=== PATIENT | female | born 1990 | race Caucasian/White ===

== ENCOUNTER 2017-03-29 09:29 | Outpatient (CLI) | payer OTHER ==
[~2017-03-29] VITALS: Ht 170.2 cm; Wt 99.0 kg
[2017-03-29] MEDS ORDERED: CLAR1TAB2 PO (09:59)
[2017-03-29] MEDS ORDERED: ACET50TA PO (09:59)
[2017-03-29] MEDS ORDERED: UNIS25TA2 PO (09:59)
[2017-03-29] MEDS ORDERED: PRENTAB9 PO (09:59)
== END 2017-03-29 10:35 | disposition home or self-care (01) ==
LOC: M LDO 09:29
PROVIDERS: ATTEND Advanced Practice Midwife
DX: O26.893 Other specified pregnancy related conditions, third trimester (principal); Z3A.36 36 weeks gestation of pregnancy; N89.9 Noninflammatory disorder of vagina, unspecified

== ENCOUNTER 2017-04-13 07:33 | Outpatient (CLI) | payer OTHER ==
[~2017-04-13] VITALS: Ht 170.2 cm; Wt 100.0 kg
[~2017-04-13 07:33] MED LIST: ACET50TA PO; CLAR1TAB2 PO; PRENTAB9 PO; UNIS25TA2 PO
[2017-04-13 07:49] VITALS: BP 122/81
--- NOTE | 2017-04-13 08:44 | HPE ---
DATE OF ADMISSION: 04/13/2017 This lady is a 26-year-old 5, para 3, abortio 1, last menstrual period 07/14/2016, estimated date of confinement (EDC) 04/20/2017 at 39 weeks of gestation. She has been having [place] contractions since 1 o'clock in the morning and she had a bit of show and some clots. She does not appear to be in any distress. PAST HISTORY: August 2009 at 38 weeks, 7 pounds 11 ounce female, spontaneous vaginal delivery, induction of labor for oligohydramnios. May 2011 at 39 weeks, 8 pounds 6 ounces, spontaneous vaginal delivery male induction of labor, reason unknown. March 2015 at 40 weeks spontaneous labor, 8 pounds 13 ounces female. No issues. July 2013 she had a spontaneous miscarriage at 5 weeks. Her risk factors is she had an ASD closure in 1993, does not require antibiotic treatment. LABORATORY DATA: O+, HIV negative, hepatitis negative, RPR negative, rubella immune. Varicella immune. Urine negative. Gonorrhea and chlamydia negative. 1-hour glucose 94. GBS negative. On examination, does not appear to be in distress. Symphysis fundus height is 39, vertex presenting, nontender uterus. Contractions are about 6 minutes apart, moderate intensity. She is not breathing through them. Vertex -4, posterior, thick multiparous os, no loss of fluid or blood. Category 1 strip. Blood pressure 122/81, respirations 18, pulse 113, temperature 97.7. Urine is 1010, pH 5 and trace of blood. The rest the examination is unremarkable. She has a category 1 strip. She is normocephalic, atraumatic. Neck with full range of motion. Pupils equal and reactive to light. Chest is clear bilaterally to bases. No wheezes or rhonchi. No deep vein thrombosis (DVT), pulmonary embolism or superficial phlebitis. No costovertebral angle tenderness. Gravid abdomen. Striae are noted. Nontender. Four quadrant bowel sounds. Appropriate symphysis fundus height. She has no rashes, lesions or pruritus. No arthralgia or myalgia. No complaints of cough, wheezes, shortness of breath or dyspnea on exertion. No chest pain. She is not bleeding. Neuro complete. No incontinence, urgency or frequency. No nausea, vomiting, diarrhea or constipation. No diabetic issues. Her past gynecological history is unremarkable. Past surgical history is unremarkable. Medical history is that she had an ASD closure in 1993. She does not smoke, drink or abuse drugs. She is . No domestic violence. is present with the three children. In summary, we have a term gestation with [place], really no change in the cervix. Precautions were given regarding premature rupture of membranes, bleeding, active labor, spontaneous rupture of membranes and to return at any time should she need to for evaluation. kick chart was reviewed. The patient was discharged to followup with us if her cervix changes are her contractions change. Otherwise, she is to keep her regular appointment next week. She was discharged undelivered.
[2017-04-13] MEDS ORDERED: RANI15TA PO (08:58)
== END 2017-04-13 08:16 | disposition home or self-care (01) ==
LOC: M LDO 07:33
PROVIDERS: ATTEND Midwife
DX: O47.1 False labor at or after 37 completed weeks of gestation (principal); Z3A.39 39 weeks gestation of pregnancy; Z88.5 Allergy status to narcotic agent

== ENCOUNTER 2017-04-17 05:40 | Inpatient (IN) | payer OTHER ==
[2017-04-17] VITALS (18 sets, daily range): BP systolic 97–141; BP diastolic 54–81
[~2017-04-17] VITALS: Ht 170.2 cm; Wt 106.0 kg
[~2017-04-17 05:40] MED LIST changes: +RANI15TA PO
[2017-04-17] MEDS ORDERED: CETI5TAB2 PO (06:22)
[2017-04-17] MEDS ORDERED: LACTATED RINGER'S 1000 ML IV STA (06:29)
[2017-04-17] MEDS ORDERED: LR 1,000 ML IV SCH (06:29)
--- NOTE | 2017-04-17 06:43 | HPEPDOC ---
Obstetrical History & Physical General Date of Admission Apr 17, 2017 at 06:26 History of Present Illness 26 y/o at 39+4 with reg painful ctx's last 2 hrs. No LOF/VB. Pos FM. Chief Complaint: Contractions, term Information Provided By: Patient Care Care: Good Care Dating Final EDC: Apr 20, 2017 Final EDC by: LMP, 2nd trimester (US) Past Medical History Past Obstetrical History : Past Obstetrical History: Multigravida Type of Delivery: Spontaneous Vaginal Del. (X3 09, 11, 15-largest 8 lb 13 oz last delivery, 1 SAB in 2012) Complications: No (States no issues with all 's X3) Past Medical History Medical History allergies Surgical History: Tonsilectomy, [place] teeth, Other (Sinus 2010, ASD closure age 4) Family History Significant Family History: No pertinent family hx Family History Heart DZ in parents Social History Marital Status: Family situation: Spouse/partner home Psychosocial History: No pertinent psych hx * Smoker: non-smoker Alcohol: Denies Drugs: denies Abuse Violence Screening Have you been hit/kicked/slapp: No Have you been sexually assault: No Imunizations Influenza Status: current Allergies Coded Allergies: Codeine (Verified Allergy, Mild, nausea, 04/17/17) Medications Scheduled Multivitamins/ ( 27-0.8 mg) 1 Tab Tab, 1 TAB PO DAILY Scheduled PRN Acetaminophen (Mapap) 500 Mg Tab, 650 MG PO PRN PRN for PAIN Miscellaneous Medications Cetirizine HCl (Cetirizine HCl) 5 Mg Tab, 5 MG PO Ranitidine Hcl (Zantac) 150 Mg Tab, 1 TAB PO Physical Examination Physical Examination GENERAL: Alert and oriented times three. ABDOMEN: Gravid and non-tender to touch. FETUS: VTX by sterile vaginal examination (SVE), Cx 5/90/-1/well applied. HEART RATE: Regular rate and rhythm. LUNGS: Clear to auscultation (CTA). EXTREMITIES: No edema. Vital Signs/I&O Vital Signs Date Time Temp Pulse Resp B/P (MAP) Pulse Ox O2 Delivery O2 Flow Rate FiO2 04/17/17 05:53 98.4 93 18 116/70 (85) Laboratory Data 24H LABS Laboratory Tests 2 04/17/17 05:49: Serology Scanned Report Hepatitis B Testing Urine Culture: Contaminated Pertinent Laboratoy Data Blood Type: O+ RBC Antibody Screen: Negative HIV: Negative Hepatitis B: Negative Hepatitis C: Unknown Rapid Plasma Reagin: Nonreactive Rubella: Immune Varicella: Immune Chlamydia/Gonorrhea: Negative Group B Streptococcus: Negative Quad Screen Test: Declined Cystic Fibrosis: Declined Glucose Tolerance Test: 94 Anatomy Ultrasound Placenta Location: Posterior Normal Anatomy: Yes ( echo X2 in NOV & DEC 31) Placenta Previa: No Steroid Therapy Steroid Therapy: No Assessment Variability: Moderate Accelerations: Positive Decelerations: None Tocometer Contractions: Yes Frequency: regular Duration: greater than 60 seconds Strength: palpated as strong Assessment/Plan Assessment , active labor. Desires Epidural. Plan Admit and orient. Clerk General Office and consent. Diet: clrs Group B Streptococcus (GBS) negative Labs and intravenous (IV) per unit protocol. Lactated Ringers (LR): Bolus 1000 mL, then at 125 mL/hr. Epidural. Anticipate normal spontaneous delivery (). C-S as appropriate. Will check 2 hrs, after epidural. Sessions SOPHIE HERMAN MD Apr 17, 2017 06:43
[2017-04-17 07:02] LABS: MEAN CORPUSCULAR HEMOGLOBIN 31.3 pg (27.0-33.0); MEAN CORPUSCULAR HGB CONC 34.3 g/dl (32.0-36.5); MEAN CORPUSCULAR VOLUME 91.3 fl (80.0-96.0); RED CELL DISTRIBUTION WIDTH 15.2 % (11.5-14.5); WHITE BLOOD COUNT 19.3 K/mm3 (4.0-10.0)
[2017-04-17] MEDS ORDERED: FENTANYL 2MCG/ML ROPIVACAINE 0.2% IN 0.9% NACL 200ML IVBAG As Ordered ONE (07:29)
[2017-04-17] MEDS ORDERED: FENTANYL/ROPIVACAINE/NACL BAG 200 ML EPIDURAL SCH (09:00)
[2017-04-17] MEDS ORDERED: REFRIGERATOR IV KEYS XX PRN (09:00)
[2017-04-17] MEDS ORDERED: EPIDURAL COMMENT XX SCH (09:00)
[2017-04-17] MEDS ORDERED: NALOXONE INJ 0.4 MG/1 ML VIAL (J2310) IV PRN (09:00)
[2017-04-17] MEDS ORDERED: ONDANSETRON 4MG/2ML VIAL (J2405) IV PRN (09:00)
[2017-04-17] MEDS ORDERED: LACTATED RINGER'S 1000 ML IV PRN (09:00)
[2017-04-17] MEDS ORDERED: EPIDURAL/PCA KEYS XX PRN (09:00)
[2017-04-17] MEDS ORDERED: diphenhydrAMINE INJ 50MG/ML VIAL (J1200) IV PRN (09:00)
[2017-04-17] MEDS ORDERED: ePHEDrine SULFATE 25 MG/5 ML(5MG/ML) SYRINGE IV PRN (09:00)
--- NOTE | 2017-04-17 09:11 | IPNPDOC ---
Text Note Date of Service The patient was seen on 04/17/17. NOTE Feeling great post-epidural NST Cat 1 Cx 6-90/0 AROM with clr fluid Recheck in 2 hrs, sooner prn Sessions VS,Roxanne, I+O VSRoxanne I+O Laboratory Tests 04/17/17 06:40 Red Blood Count 4.29, Mean Corpuscular Volume 91.3, Mean Corpuscular Hemoglobin 31.3, Mean Corpuscular Hemoglobin Concent 34.3, Red Cell Distribution Width 15.2 H Vital Signs Date Time Temp Pulse Resp B/P (MAP) Pulse Ox O2 Delivery O2 Flow Rate FiO2 04/17/17 05:53 98.4 93 18 116/70 (85) SESSIONS,SOPHIE Pop MD Apr 17, 2017 09:11
[2017-04-17] MEDS ORDERED: OXYTOCIN 30 UNITS IN 0.9% NaCl 500ML IV BAG (J2590) As Ordered ONE (10:20)
[2017-04-17] MEDS ORDERED: OXYTOCIN DRIP 30 UNITS in APPROPRIATE DILUENT 1 EA IV SCH ×4 (10:55)
[2017-04-17] MEDS ORDERED: METOCLOPRAMIDE INJ 10MG/2ML VIAL (J2765) IV PRN (11:00)
[2017-04-17] MEDS ORDERED: RHOGAM 300 MCG (1500 IU) INJ (J2790) IM SCH (11:00)
[2017-04-17] MEDS ORDERED: ACETAMINOPHEN TAB 650MG DOSE (2X325MG) PO PRN (11:00)
[2017-04-17] MEDS ORDERED: MEASLES,MUMPS,RUBELLA VACCINE INJ (MMR-II) (90707) SC SCH (11:00)
[2017-04-17] MEDS ORDERED: DIBUCAINE 1% OINTMENT 30GM TOP PRN (11:00)
--- NOTE | 2017-04-17 11:01 | DNPDOC ---
[facility] Delivery Note Delivery Note DATE OF DELIVERY: Apr 17, 2017 at 06:26 PREDELIVERY DIAGNOSIS: 39 4/7 weeks' gestation and labor. POST DELIVERY DIAGNOSIS: Delivered. PROCEDURE: Spontaneous vaginal delivery [employer]GER: ANESTHESIA: epidural ESTIMATED BLOOD LOSS: 200 mL. FINDINGS: 9 pound 2 ounce male , Score 8/9 DELIVERY SUMMARY: active labor, progressed well with no complications, NST Cat 1. Pushed very well after found to be C/C/+1. JENNIFER. No delay of the vtx or the ant/post shoulders. To abd with good tone and spont cry. Cord C/C by FOB. Cord blood. Small lac at post vag wall inside the perineum, single figure of eight obtained hemostasis. Placenta intact with traction and fundal massage, pit going fundus firm. Due to grand multip status will give a second bag of pitocin at 125/hr after first bag bolused in. Uncomplicated. SOPHIE RICHTER MD Apr 17, 2017 11:01
[2017-04-17] MEDS: IBUPROFEN 800 MG TAB PO PRN ×2 (14:12→22:48)
[2017-04-17] MEDS: DOCUSATE SODIUM 100 MG CAP PO SCH ×2 (14:28→22:48)
[2017-04-17] MEDS: PRENATAL VITAMINS CHEWABLE TABLET PO SCH (14:29)
[2017-04-18 05:46] VITALS: BP 127/72
--- NOTE | 2017-04-18 06:14 | IPNPDOC ---
Text Note Date of Service The patient was seen on 04/18/17. NOTE PPD1 prog note States feeling well, no complaints. No heavy VB. Pain controlled. Voiding, ambulatory. Bonding well and breast feeding well. VSSAF CTAB RRR Ut at U-2, firm Ext no CCE a/p: Doing well. d/c this morning. To bonding if baby not released. Sessions Roxanne BURTON, I+O Roxanne CHEATHAM I+O Laboratory Tests 04/17/17 06:40 Red Blood Count 4.29, Mean Corpuscular Volume 91.3, Mean Corpuscular Hemoglobin 31.3, Mean Corpuscular Hemoglobin Concent 34.3, Red Cell Distribution Width 15.2 H Vital Signs Date Time Temp Pulse Resp B/P (MAP) Pulse Ox O2 Delivery O2 Flow Rate FiO2 04/18/17 05:46 97.9 73 14 127/72 (90) I&O- Last 24 Hours up to 6 AM 04/18/17 06:00 Intake Total 1300 ml Output Total 475 ml Balance 825 ml SESSIONS,SOPHIE Pop MD Apr 18, 2017 06:14
--- NOTE | 2017-04-18 06:15 | DS.PDOC ---
Discharge Summary General Date of Admission Apr 17, 2017 at 06:26 Date of Discharge [id number] Discharge Summary PROCEDURES PERFORMED DURING STAY: spontaneous vaginal delivery ADMITTING DIAGNOSIS: 1. Active Labor DISCHARGE DIAGNOSES: 1. Healthy male HOSPITAL COURSE: Admitted for active labor and delivery. Uncomplicated, see delivery note. DISCHARGE MEDICATIONS: Motrin, Tylenol, Colace, Lanolin Physical exam: see note from this morning LABORATORY DATA: Please see below. ACTIVITY: as tolerated. Nothing in vagina for 6 weeks. DIET: regular DISPOSITION:stable TIME SPENT ON DISCHARGE: Greater than 15 minutes. Sessions Vital Signs/I&Os Vital Signs Date Time Temp Pulse Resp B/P (MAP) Pulse Ox O2 Delivery O2 Flow Rate FiO2 04/18/17 05:46 97.9 73 14 127/72 (90) I&O- Last 24 Hours up to 6 AM 04/18/17 06:00 Intake Total 1300 ml Output Total 475 ml Balance 825 ml Laboratory Data Labs 24H Laboratory Tests 2 04/17/17 06:40: CBC/BMP Laboratory Tests 04/17/17 06:40 Red Blood Count 4.29, Mean Corpuscular Volume 91.3, Mean Corpuscular Hemoglobin 31.3, Mean Corpuscular Hemoglobin Concent 34.3, Red Cell Distribution Width 15.2 H Discharge Medications Scheduled Multivitamins/ ( 27-0.8 mg) 1 Tab Tab, 1 TAB PO DAILY, (Reported ) Scheduled PRN Acetaminophen (Mapap) 500 Mg Tab, 650 MG PO PRN PRN for PAIN, (Reported) Miscellaneous Medications Cetirizine HCl (Cetirizine HCl) 5 Mg Tab, 5 MG PO, (Reported) Ranitidine Hcl (Zantac) 150 Mg Tab, 1 TAB PO, (Reported) Allergies Coded Allergies: Codeine (Verified Allergy, Mild, nausea, 04/17/17) SOPHIE RICHTER MD Apr 18, 2017 06:15
[2017-04-18] MEDS: DOCUSATE SODIUM 100 MG CAP PO SCH (08:33)
[2017-04-18] MEDS: PRENATAL VITAMINS CHEWABLE TABLET PO SCH (08:33)
[2017-04-18] MEDS: IBUPROFEN 800 MG TAB PO PRN (08:33)
[2017-04-18] MEDS ORDERED: COLA100C5 PO (12:50)
[2017-04-18] MEDS ORDERED: IBUP-1114 PO (12:51)
== END 2017-04-18 14:30 | disposition home or self-care (01) | DRG 775 ==
LOC: M LDO 05:40 → M LDI 06:26 → M OBS 13:27
PROVIDERS: ADMIT Obstetrics & Gynecology; ATTEND Obstetrics & Gynecology
PROC: 10E0XZZ Delivery of Products of Conception, External Approach (ICD-10-PCS; principal; 2017-04-17)
PROC: 10907ZC Drainage of Amniotic Fluid, Therapeutic from Products of Conception, Via Natural or Artificial Opening (ICD-10-PCS; 2017-04-17)
PROC: 0HQ9XZZ Repair Perineum Skin, External Approach (ICD-10-PCS; 2017-04-17)
DX: O70.0 First degree perineal laceration during delivery (principal); Z82.49 Family history of ischemic heart disease and other diseases of the circulatory system; Z37.0 Single live birth; Z3A.39 39 weeks gestation of pregnancy; Z88.5 Allergy status to narcotic agent; Z79.899 Other long term (current) drug therapy; J30.9 Allergic rhinitis, unspecified; O99.52 Diseases of the respiratory system complicating childbirth

== ENCOUNTER 2017-04-23 19:02 | Emergency (ER) | payer OTHER ==
[~2017-04-23] VITALS: Ht 170.2 cm; Wt 102.2 kg
[~2017-04-23 19:02] MED LIST changes: +CETI5TAB2 PO; +COLA100C5 PO; +IBUP-1114 PO
[2017-04-23 21:06] LABS: MEAN CORPUSCULAR HEMOGLOBIN 30.6 pg (27.0-33.0); MEAN CORPUSCULAR HGB CONC 32.9 g/dl (32.0-36.5); MEAN CORPUSCULAR VOLUME 93.1 fl (80.0-96.0); RED CELL DISTRIBUTION WIDTH 14.1 % (11.5-14.5); WHITE BLOOD COUNT 16.6 K/mm3 (4.0-10.0)
[2017-04-23 21:15] LABS: BANDS 1 % (< 11); BASOPHILS 1 % (0-4); EOSINOPHILS 1 % (0-5)
[2017-04-23 21:39] LABS: ALBUMIN 3.3 GM/DL (3.2-5.2); ALBUMIN/GLOBULIN RATIO 0.79 (1.00-1.93); ALKALINE PHOSPHATASE 146 U/L (45-117); ALT/SGPT 34 U/L (12-78); ANION GAP 8 MEQ/L (8-16); AST/SGOT 20 U/L (15-37); BILIRUBIN,TOTAL 0.6 MG/DL (0.2-1.0); BLOOD UREA NITROGEN 9 MG/DL (7-18); CALCIUM LEVEL 8.7 MG/DL (8.5-10.1); CARBON DIOXIDE LEVEL 25 MEQ/L (21-32); CHLORIDE LEVEL 109 MEQ/L (98-107); CREATININE FOR GFR 0.77 MG/DL (0.55-1.02); GLOMERULAR FILTRATION RATE > 60.0 (>60); GLUCOSE, FASTING 84 MG/DL (70-105); POTASSIUM SERUM 3.7 MEQ/L (3.5-5.1); SODIUM LEVEL 142 MEQ/L (136-145); TOTAL PROTEIN 7.5 GM/DL (6.4-8.2)
[2017-04-23] MEDS ORDERED: ISOVUE-370 76% 100ML VIAL (Q9967) As Ordered ONE (21:42)
[2017-04-23] MEDS ORDERED: diazePAM 2 MG TAB PO ONE (21:45)
[2017-04-23] MEDS ORDERED: NS 1,000 ML IV ONE (22:30)
--- NOTE | 2017-04-23 22:41 | REPUSA ---
CT angiogram of the chest Clinical statement: Chest pain and shortness of breath. Technique: Multiple axial CT images were obtained from the thoracic inlet through the upper abdomen a fter a bolus administration of nonionic intravenous contrast. Coronal and sagittal reconstructions we re also obtained. Comparison: None. Findings: The pulmonary arteries are well-opacified with contrast, with no intraluminal filling defec ts to suggest embolism. The thoracic aorta is unremarkable. Thyroid gland is within normal limits. Th ere is no thoracic lymphadenopathy. There is a moderate left-sided pleural effusion with left lower l obe infiltrate. There is a small right-sided pleural effusion with right lower lobe infiltrate. Limit ed imaging of the upper abdomen is unremarkable. There are no suspicious osseous lesions. Impression: 1. No evidence of pulmonary embolism. 2. Bilateral pleural effusions and lower lobe infiltrates, greater on the left than the right.
[2017-04-23] MEDS ORDERED: METHOCARBAMOL 1,000 MG/10 ML VIAL (J2800) IV ONE (22:45)
[2017-04-23] MEDS ORDERED: CEFUROXIME SODIUM 1.5 GM in D5W MINI-BAG PLUS 50 ML IV ONE (23:30)
[2017-04-24] MEDS ORDERED: MORPHINE 4 MG/ML 1ML SYRINGE IV ONE
[2017-04-24 00:33] LABS: ABG BASE EXCESS -3.5 (-2.0-2.0); ABG HCO3 19.4 MEQ/L (22.0-26.0); ABG PARTIAL PRESSURE CO2 29.2 mmHg (35.0-45.0); ABG PARTIAL PRESSURE O2 91.1 mmHg (75.0-100.0); ABG STANDARD HCO3 21.6 MEQ/L (22.0-26.0); ABG TOTAL CO2 20.3 MEQ/L (22.0-29.0)
[2017-04-24] MEDS ORDERED: CEFU1TAB20 PO (00:45)
[2017-04-24 01:13] VITALS: BP 160/70
--- NOTE | 2017-04-24 17:58 | ECGEPIP ---
Stationary ECG Study [facility] - ED Test Date: 2017-04-23 Pat Name: EMILY NEWTON Department: Room: - Gender: F Supervisor Typesetting: ct : 1990 Requested By: LUISANA Steiner PA-C Order Number: [id number] Reading MD: Wil Horn Measurements Intervals [place] Rate: 89 P: 42 MO: 146 QRS: -2 QRSD: 86 T: 82 QT: 366 QTc: 447 Interpretive Statements SINUS RHYTHM NONSPECIFIC T-WAVE ABNORMALITY NO PRIORS Electronically Signed On 04-24-2017 17:58:03 EDT by Wil Horn
== END 2017-04-24 01:47 | disposition home or self-care (01) ==
LOC: M ED 19:02
DX: J18.9 Pneumonia, unspecified organism (principal)
CPT/HCPCS: 36415; 36600; 71275; 80053; 82550; 82553; 82803; 83880; 85007; 85027; 85379; 93005; 93041; 96374; 96375; 99285; J0697; J2800; J3360; Q9967

== ENCOUNTER → 2017-05-23 | Outpatient (CLI) | payer OTHER ==
[~2017-05-23] MED LIST changes: +CEFU1TAB20 PO
--- NOTE | 2017-05-23 11:09 | REP ---
PA and lateral chest: Comparison is the CT of the chest dated 04/23/2017. Sternotomy wires are again identified, unchanged. There is effacement of the left costophrenic angle suggestive of a left pleural effusion/infiltrate/combination. This is similar to the comparison CT. The remainder of the lung smith are clear. Cardiac size is upper normal. The julian, mediastinum, and bony thorax are unremarkable. Impression: Effacement of the left costophrenic angle. Signed by Barry Michaels MD 05/23/2017 11:01 A
== END ==
LOC: M RAD 10:39
PROVIDERS: ATTEND Nurse Practitioner Family
DX: Z87.01 Personal history of pneumonia (recurrent) (principal)
CPT/HCPCS: 71020; G0463